=== PATIENT | female | born 1985 | race African-American/Black ===

== ENCOUNTER 2021-12-01 16:30 | Emergency (ER) | payer MEDICAID ==
[~2021-12-01] VITALS: Ht 162.6 cm; Wt 81.6 kg
[2021-12-01] MEDS ORDERED: ENOX40DI SUBCUT (17:20)
[2021-12-01] MEDS ORDERED: DULO30CA2 PO (17:20)
[2021-12-01] MEDS ORDERED: FAMO-132 PO (17:20)
[2021-12-01] MEDS ORDERED: RISP1TAB97 PO (17:20)
[2021-12-01] MEDS ORDERED: METH-817 PO (17:20)
[2021-12-01] MEDS ORDERED: BISA10SU61 RC (17:20)
[2021-12-01] MEDS ORDERED: ASPI81TA31 PO (17:20)
[2021-12-01] MEDS ORDERED: GABA-532 PO (17:20)
[2021-12-01] MEDS ORDERED: MAGN400O6 PO (17:20)
[2021-12-01] MEDS ORDERED: DEXT15DR6 EACHEYE (17:20)
[2021-12-01] MEDS ORDERED: FLUT1AER4 INH (17:20)
[2021-12-01] MEDS ORDERED: NA P133E RC (17:20)
[2021-12-01] MEDS ORDERED: GUAI-1189 PO (17:20)
[2021-12-01] MEDS ORDERED: CLON1TAB PO (17:20)
[2021-12-01] MEDS ORDERED: PANT40TA49 PO (17:20)
[2021-12-01] MEDS ORDERED: ACET-2154 PO (17:20)
[2021-12-01] MEDS ORDERED: BENZ-38 PO (17:20)
[2021-12-01 17:27] LABS: *BILIRUBIN,URIN NEGATIVE (NEGATIVE); *BLOOD, URINE NEGATIVE (NEGATIVE); *CLARITY,URINE CLEAR (CLEAR); *COLOR,URINE YELLOW (YELLOW); *KETONES,URINE TRACE (NEGATIVE); *UROBILINOGEN,URINE 0.2 E.U./dl (NORMAL); LEUKOCYTE ESTERASE ,URINE NEGATIVE (NEGATIVE); NITRITE, URINE NEGATIVE (NEGATIVE); UGLUCOSE NEGATIVE (NEGATIVE)
[2021-12-01 17:30] LABS: *URINE HCG, QUAL NEG (NEGATIVE)
[2021-12-01] MEDS ORDERED: KETOROLAC TROMETHAMINE 15 MG INJ IVP ONE (17:30)
[2021-12-01] MEDS ORDERED: IV NS 1000 ML 1,000 ML IV ONE (17:30)
[2021-12-01] MEDS ORDERED: METOCLOPRAMIDE HCL 10 MG/2 ML VIAL IV ONE (17:30)
[2021-12-01] MEDS ORDERED: diphenhydrAMINE 50 MG/1 ML VIAL IV ONE (17:30)
[2021-12-01 17:42] LABS: HEMATOCRIT 35.9 % (31.2-41.9); MEAN CORPUSCULAR HEMOGLOBIN 26.1 uug (24.7-32.8); MEAN CORPUSCULAR VOLUME 78.4 fL (75.5-95.3); PLATELET COUNT (AUTO) 213 K/uL (179-408)
[2021-12-01 17:49] LABS: CARBON DIOXIDE 24 mmol/L (21-32); CHLORIDE 106 mmol/L (98-107); CREATININE 0.8 mg/dL (0.6-1.3); GLUCOSE 115 mg/dL (74-106); POTASSIUM 2.9 mmol/L (3.5-5.1); UREA NITROGEN, BLOOD 6 mg/dL (7-18)
[2021-12-01 17:55] LABS: ALANINE AMINOTRANSFERASE 12 U/L (14-59); ALKALINE PHOSPHATASE 63 U/L (50-136); ASPARTATE AMINOTRANSFERASE 7 U/L (15-37); BILIRUBIN,DIRECT < 0.1 mg/dL (0.0-0.2); BILIRUBIN,TOTAL 0.3 mg/dL (0.2-1.0); LIPASE 78 U/L (73-393); TOTAL PROTEIN, SERUM 5.6 g/dL (6.4-8.2)
[2021-12-01] MEDS ORDERED: DIAZEPAM 2 MG TABLET PO ONE (18:45)
[2021-12-01] MEDS ORDERED: POTASSIUM BICARBONATE/CIT AC 25 MEQ TABLET.EFF PO ONE (18:45)
[2021-12-01] MEDS ORDERED: DIAZEPAM 2 MG TABLET ONE (18:47)
[2021-12-01] MEDS ORDERED: POTASSIUM BICARBONATE/CIT AC 25 MEQ TABLET.EFF ONE (18:47)
--- NOTE | 2021-12-01 20:07 | NUR ---
LT AC INFILTRATED. D/C. NEW IV INSERTED RT AC. NO INFILTRATION PRESENT.
--- NOTE | 2021-12-01 22:15 | NUR ---
DR. HERNÁNDEZ AT BEDSIDE.
[2021-12-01] MEDS ORDERED: HYDR-3980 PO (22:36)
[2021-12-01] MEDS ORDERED: Paxlovid PO (22:36)
[2021-12-01] MEDS ORDERED: ONDANSETRON 4 MG/2 ML VIAL IV ONE (23:30)
[2021-12-01] MEDS ORDERED: MORPHINE SULFATE 4 MG/1 ML DISP.SYRIN IV ONE (23:30)
[2021-12-02] MEDS ORDERED: MORPHINE SULFATE 4 MG/1 ML DISP.SYRIN ONE (00:01)
[2021-12-02] MEDS ORDERED: ONDANSETRON 4 MG/2 ML VIAL IM ONE (00:15)
[2021-12-02] MEDS ORDERED: MORPHINE SULFATE 4 MG/1 ML DISP.SYRIN IM ONE (00:15)
--- NOTE | 2021-12-02 00:25 | NUR ---
IV removed. Catheter intact and site benign. Pressure and 4x4 gauze applied to site. No bleeding noted.
--- NOTE | 2021-12-02 00:30 | NUR ---
Patient discharged to home in stable condition. Written and verbal after care instructions given. Patient verbalizes understanding of instructions. Stressed follow up or return to ER for worsening s/s. Patient has steady gait. Patient trasportation via taxi.
--- NOTE | 2021-12-02 00:38 | NUR ---
Note abi in ED - 12/02/21 at 0040 by JULIAN Patient discharged to home in stable condition. Written and verbal after care instructions given. Patient verbalizes understanding of instructions. Stressed follow up or return to ER for worsening s/s. Patient has steady gait. Patient trasportation via taxi.
[2021-12-02 00:41] VITALS: BP 115/79
== END 2021-12-02 00:30 | disposition home or self-care (01) ==
LOC: ER 16:30
DX: U07.1 COVID-19 (principal); R51.9 Headache, unspecified; E28.2 Polycystic ovarian syndrome; M19.90 Unspecified osteoarthritis, unspecified site; Z28.310 Unvaccinated for COVID-19; Z79.82 Long term (current) use of aspirin; Z79.899 Other long term (current) drug therapy; E87.6 Hypokalemia
CPT/HCPCS: 99284; 96374; 71045; 96375; 96361; 87426; 80076; 80048; 81003; 84703; 83690; 85025; 87086; 36415; 96372; J1200; J1885; J2765; J7040; J2270; A4663

== ENCOUNTER 2021-12-04 16:21 | Emergency (ER) | payer MEDICAID ==
[~2021-12-04] VITALS: Ht 162.6 cm; Wt 79.4 kg
[~2021-12-04 16:21] MED LIST: ACET-2154 PO; ASPI81TA31 PO; BENZ-38 PO; BISA10SU61 RC; CLON1TAB PO; DEXT15DR6 EACHEYE; DULO30CA2 PO; ENOX40DI SUBCUT; FAMO-132 PO; FLUT1AER4 INH; GABA-532 PO; GUAI-1189 PO; HYDR-3980 PO; MAGN400O6 PO; METH-817 PO; NA P133E RC; PANT40TA49 PO; Paxlovid PO; RISP1TAB97 PO
[2021-12-04] MEDS ORDERED: ONDANSETRON ODT 4 MG TAB.RAPDIS ONE (16:32)
[2021-12-04] MEDS ORDERED: KETOROLAC TROMETHAMINE 30 MG INJ ONE (16:32)
[2021-12-04] MEDS ORDERED: ONDA4TAB11 PO (16:33)
--- NOTE | 2021-12-04 16:40 | NUR ---
Toradol and Zofran given as ordered.
[2021-12-04] MEDS ORDERED: ONDANSETRON ODT 4 MG TAB.RAPDIS SL ONE (16:45)
[2021-12-04] MEDS ORDERED: KETOROLAC TROMETHAMINE 30 MG INJ IM ONE (16:45)
--- NOTE | 2021-12-04 17:01 | NUR ---
Patient is seen by Dr. Starks, orders carried out.
--- NOTE | 2021-12-04 17:17 | NUR ---
Patient discharged to home in stable condition. Written and verbal after care instructions given. Patient verbalizes understanding of instructions. Stressed follow up or return to ER for worsening s/s.
[2021-12-04 17:18] VITALS: BP 128/72
== END 2021-12-04 17:15 | disposition home or self-care (01) ==
LOC: ER 16:21
DX: U07.1 COVID-19 (principal); G43.909 Migraine, unspecified, not intractable, without status migrainosus; Z79.82 Long term (current) use of aspirin; Z79.899 Other long term (current) drug therapy; M19.90 Unspecified osteoarthritis, unspecified site; E28.2 Polycystic ovarian syndrome
CPT/HCPCS: 99283; 96372; J1885; A4663; Q0162

== ENCOUNTER 2024-08-13 10:39 | Emergency (ER) | payer MEDICAID ==
[~2024-08-13] VITALS: Ht 162.6 cm; Wt 77.1 kg
[~2024-08-13 10:39] MED LIST changes: +ONDA4TAB11 PO
[2024-08-13] MEDS ORDERED: SUCRALFATE 1 G/10 ML LIQUID UDC ONE (11:29)
[2024-08-13] MEDS ORDERED: METOCLOPRAMIDE HCL 10 MG TABLET ONE (11:29)
[2024-08-13] MEDS ORDERED: SUCRALFATE 1 G/10 ML LIQUID UDC GT ONE (11:30)
[2024-08-13 11:31] LABS: *BILIRUBIN,URIN NEGATIVE (NEGATIVE); *BLOOD, URINE 3+ (NEGATIVE); *CLARITY,URINE CLEAR (CLEAR); *COLOR,URINE YELLOW (YELLOW); *KETONES,URINE 2+ (NEGATIVE); *PROTEIN,URINE NEGATIVE (NEGATIVE); *URINE HCG, QUAL NEGATIVE (NEGATIVE); *UROBILINOGEN,URINE 0.2 E.U./dl (NORMAL); LEUKOCYTE ESTERASE ,URINE NEGATIVE (NEGATIVE); NITRITE, URINE NEGATIVE (NEGATIVE); UGLUCOSE NEGATIVE (NEGATIVE)
[2024-08-13] MEDS: METOCLOPRAMIDE HCL 10 MG TABLET PO ONE (11:31)
[2024-08-13] MEDS: SUCRALFATE 1 G/10 ML LIQUID UDC PO ONE (11:31)
[2024-08-13 11:32] LABS: BASOPHILS % (AUTO) 0.5 % (0.0-2.0); DIFFERENTIAL COMMENT 1; EOSINOPHILS % (AUTO) 0.9 % (0.0-7.0); HEMATOCRIT 39.1 % (31.2-41.9); HEMOGLOBIN 13.2 g/dL (10.9-14.3); LYMPHOCYTES # (AUTO) 1.6 K/uL (0.8-4.8); LYMPHOCYTES % (AUTO) 31.6 % (20.5-51.5); MEAN CORPUSCULAR HGB CONC 34 g/dL (32.3-35.6); MEAN CORPUSCULAR VOLUME 80.1 fL (75.5-95.3); MONOCYTES # (AUTO) 0.4 K/uL (0.1-1.30); MONOCYTES % (AUTO) 7.2 % (0.0-11.0); NEUTROPHILS % (AUTO) 59.8 % (38.5-71.5); PLATELET COUNT (AUTO) 289 K/uL (179-408); RED BLOOD CELL COUNT(AUTO) 4.89 MIL/uL (3.63-4.92)
[2024-08-13 11:46] LABS: BACTERIA,URINE FEW /HPF (NONE SEEN); SQUAMOUS EPITHELIAL CELL,UR MODERATE /HPF (NONE SEEN); WBC,URINE 0-3 /HPF (0-3)
[2024-08-13 11:47] LABS: CALCIUM 9.4 mg/dL (8.5-10.1); CREATININE 0.8 mg/dL (0.6-1.3); POTASSIUM 3.2 mmol/L (3.5-5.1)
[2024-08-13] MEDS ORDERED: POTASSIUM CHLORIDE 20 MEQ TAB.PRT.SR ONE (12:29)
[2024-08-13] MEDS: POTASSIUM CHLORIDE 20 MEQ TAB.PRT.SR PO ONE (12:30)
[2024-08-13] MEDS ORDERED: POTA8CAP20 PO (12:44)
[2024-08-13] MEDS ORDERED: SUCR1ORA PO (12:44)
[2024-08-13] MEDS ORDERED: METO-295 PO (12:44)
[2024-08-13 13:01] VITALS: BP 147/112; O2SAT 99
== END 2024-08-13 13:02 | disposition home or self-care (01) ==
LOC: ER 10:39
DX: E87.6 Hypokalemia (principal); R10.13 Epigastric pain; Z79.51 Long term (current) use of inhaled steroids; Z79.82 Long term (current) use of aspirin; Z79.899 Other long term (current) drug therapy; Z60.2 Problems related to living alone
CPT/HCPCS: 36415; 74021; 83690; 84703; 85025; A4606; A4663; J8597